=== PATIENT | female | born 1975 | race Caucasian/White ===

== ENCOUNTER 2020-04-15 13:43 | Emergency (ER) | payer BC, SELFPAY ==
[2020-04-15 14:05] VITALS: BP 151/93; PULSE 106; RESP 19; TEMP 37.1; O2SAT 98; BMI 32.1
[2020-04-15 14:15] VITALS: BP 151/93; PULSE 106; RESP 19; TEMP 37.1; O2SAT 98
--- NOTE | 2020-04-15 14:15 | HMH.EDUTC ---
[facility] [place] Disposition Clinical Impression: Viral syndrome, Exposure to COVID-19 virus Disposition: Home, Self-Care Condition on Discharge: Good Instructions: Preventing the Spread of Coronavirus Discharge Instructions Additional Instructions: Drink plenty of fluids. Take tylenol for pain or fever. Return if you begin to have difficulty breathing. Follow up with your regular doctor. GO TO THE ER FOR ANY WORSENING SYMPTOMS Referrals: Hector Castaneda [Primary Care Provider] - Forms: Work/School Release Time of Disposition: 14:17 Medical Decision Making - Medical Records Medical records reviewed: No: I reviewed the patient's medical records. - Darrell Inquiry Pt receiving controlled substance: No Vital Signs: 04/15/20 14:05 04/15/20 14:15 Temperature 98.8 F 98.8 F Temperature Source Oral Pulse Rate 106 H Pulse Rate [Left] 106 H Respiratory Rate 19 19 Blood Pressure 151/93 H Blood Pressure [Right Arm] 151/93 H Blood Pressure Mean [Right Arm] 112 Blood Pressure Source [Right Arm] Automatic Cuff Blood Pressure Position [Right Arm] Sitting 02 Sat by Pulse Oximetry 98 Oxygen Delivery Method Room Air [facility] [place] HPI - General Stated complaint: loss of taste and smell Time Seen by Provider: 04/15/20 14:16 Mode of Arrival: Ambulatory Source of Information: Patient Limitations: No Limitations Description of Symptoms (Recalled from Triage Doc. by RN): Covid testing symptomatic no exposure Loss of smell and taste HEENT Symptoms (Recalled from RN notes): Yes Resp Symptoms (Recalled from RN notes): No Skin Symptoms (Recalled from RN notes): No MS Symptoms (Recalled from RN notes): No Functional Status (Recalled from RN notes): wnl - History of Present Illness Provider Complaint: She states that for the past 2 days she had some sinus congestion. She throught she was getting a sinus infection, but today she has lost her sense of taste and smell. She also states that her sinus congestion has got better. She denies any fever or chillls. - Related Data Home Medications Medication Instructions Recorded Confirmed Cetirizine HCl [Zyrtec 10mg Tab*] 10 mg PO DAILY 04/15/20 04/15/20 Levothyroxine Sodium [Synthroid 125 mcg PO DAILY 04/15/20 04/15/20 125mcg (0.125mg) tablet] Allergies Allergy/AdvReac Type Severity Reaction Status Date / Time No Known Allergies Allergy Verified 04/15/20 14:09 - Worker's Comp Is this a Worker's Comp case?: No Is this an [facility] Worker's Comp?: No Is this a [place] Worker's Comp?: No [facility] History - Hepatitis A Screen Drug use history?: No High risk sexual behaviors?: No History of sexually transmitted infection?: No Currently employed?: No Childcare worker?: No Do you have indoor plumbing?: Yes Do you have electricity?: Yes Attestation statement:: This patient has been screened for Hepatitis A risk factors. I have reviewed the patient's past medical history: Yes - Social History Smoking Status: Never smoker Alcohol Intake: never Occupational Status: other ROS Obtained: Yes All systems reviewed & no additional complaints - Constitutional Constitutional: Reports system reviewed and no additional complaints, except as docu - Eyes Eyes: Reports system reviewed and no additional complaints, except as docu - ENT Ears, Nose, Mouth, and Throat: Reports system reviewed and no additional complaints, except as docu - Cardiovascular Cardiovascular: Reports system reviewed and no additional complaints, except as docu - Respiratory Respiratory: Yes system reviewed and no additional complaints, except as docu - Gastrointestinal Gastrointestingal: Reports: system reviewed and no additional complaints, except as docu Physical Exam - General General appearance: alert, in no apparent distress - Head Head exam: atraumatic, normocephalic, normal inspection - Eye Eye exam: Present: normal appearance, PERRL, EOMI - ENT ENT exam: Present
--- NOTE | 2020-04-15 17:07 | PC.NURSE ---
patient notified of positive covid results
== END 2020-04-15 14:34 | disposition home or self-care (01) ==
PROVIDERS: Emergency Provider Nurse Practitioner Family; PCP Family Medicine
DX: U07.1 COVID-19 (principal)
CPT/HCPCS: 99201; U0003

== ENCOUNTER 2021-01-19 07:22 | Emergency (ER) | payer OTHER, SELFPAY ==
[2021-01-19 07:24] VITALS: BP 156/99; PULSE 77; RESP 16; TEMP 36.5; O2SAT 100; BMI 34.0
--- NOTE | 2021-01-19 07:50 | HMH.EDGENADL ---
ED Disposition Clinical Impression: Kidney stone on right side Disposition: Home, Self-Care Condition on Discharge: Good Additional Instructions: Return to the emergency department with any new, changing, worsening symptoms. Return with worsening pain, pain with urination, burning with urination, fevers, any other concerning symptoms. Please follow-up with urology and your primary doctor in the next 2 to 3 days. Prescriptions: Tamsulosin HCl [Flomax 0.4mg capsule] 0.4 mg PO HS 10 Days #10 cap Transmission Status: Received by [facility] # Ibuprofen [Ibuprofen 600mg Tablet] 600 mg PO Q8H 10 Days #30 tab Transmission Status: Received by [facility] # Oxycodone HCl [Oxycodone 5mg tab (IR)] 5 mg PO Q8 #5 tab Transmission Status: Received by [facility] # Referrals: Hector Castaneda [Primary Care Provider] - Ish Guzman MD [Staff Physician] - Time of Disposition: 10:06 - Critical Care Critical Care Time: No Attestation: On 01/19/21, the high probability of a clinically significant, sudden or life threatening deterioration of the following system(s) required my full and direct attention, intervention and personal management. The time I documented below is in addition to time spent performing reported procedures but includes the following listed in this critical care notation. Medical Decision Making - Medical Records Medical records reviewed: Yes: I reviewed the patient's medical records. - Darrell Inquiry Pt receiving controlled substance: No Vital Signs: 01/19/21 07:24 01/19/21 08:00 01/19/21 08:12 Temperature 97.7 F Temperature Source Oral Pulse Rate 80 79 Pulse Rate [Left Radial] 77 Respiratory Rate 16 19 15 Blood Pressure 159/96 H 141/91 H Blood Pressure [Right Arm] 156/99 H Blood Pressure Mean 114 113 Blood Pressure Mean [Right Arm] 118 Blood Pressure Source [Right Arm] Automatic Cuff Blood Pressure Position [Right Arm] Sitting 02 Sat by Pulse Oximetry 100 97 99 Oxygen Delivery Method Room Air 01/19/21 08:30 Temperature Temperature Source Pulse Rate 80 Pulse Rate [Left Radial] Respiratory Rate 18 Blood Pressure 154/96 H Blood Pressure [Right Arm] Blood Pressure Mean 111 Blood Pressure Mean [Right Arm] Blood Pressure Source [Right Arm] Blood Pressure Position [Right Arm] 02 Sat by Pulse Oximetry 98 Oxygen Delivery Method - Lab Data Lab Results 01/19/21 07:45: WBC 9.7, RBC 4.66, Hgb 14.2, Hct 43.2, MCV 92.7, MCH 30.4, MCHC 32.8, RDW 13.6, Plt Count 349, MPV 8.0, Neut % (Auto) 82.2 H, Lymph % (Auto) 15.2, [place] % (Auto) 2.0, Eos % (Auto) 0.2, Baso % (Auto) 0.4, Neut # (Auto) 8.0 H, Lymph # (Auto) 1.5, [place] # (Auto) 0.2, Eos # (Auto) 0.0, Baso # (Auto) 0.0 01/19/21 07:45: Sodium 141, Potassium 3.9, Chloride 104, Carbon Dioxide 26, Anion Gap 14.9, BUN 14, Creatinine 0.80, Estimated Creat Clear 117, Estimated GFR 78, Est GFR ( Amer) 95, Glucose 194 H, Calcium 9.0, Total Bilirubin 0.3, AST 30, ALT 34, Alkaline Phosphatase 111, Total Protein 7.2, Albumin 4.4, Globulin 2.8, Albumin/Globulin Ratio 1.6 01/19/21 07:45: Urine Color Yellow, Urine Appearance Clear, Urine pH 6.0, Ur Specific [place] 1.025, Urine Protein Negative, Urine Glucose (UA) Trace, Urine Ketones Negative, Urine Blood Trace-i, Urine Nitrate Negative, Urine Bilirubin Negative, Urine Urobilinogen 0.2, Ur Leukocyte Esterase Negative, Urine RBC 3-5, Urine WBC None, Ur Squamous Epith Cells None, Urine Bacteria Trace 01/19/21 07:45: Lipase 195 Result diagrams: 01/19/21 07:45 01/19/21 07:45 Orders (Tests/Meds): ED MEDICATIONS Discontinued Medications Generic Name Dose Route Start Last Admin Trade Name Freq PRN Reason Stop Dose Admin Acetaminophen 1,000 mg 01/19/21 07:56 01/19/21 08:08 Acetaminophen 500mg Tab PO 01/19/21 07:57 1,000 mg ONCE ONE Administration Sodium Chloride 1,000 mls @ 999 mls/hr 01/19/21 07:45 01/19/21 08:0
--- NOTE | 2021-01-19 07:55 | CT_ITS ---
PROCEDURE INFORMATION: Exam: CT Abdomen And Pelvis Without Contrast Exam date and time: 01/19/2021 7:55 AM Age: 45 years old Clinical indication: Patient HX: Possible kidney stone screening// sudden onset of flank pain and back pain at 330 am -- no contrast study TECHNIQUE: Imaging protocol: Computed tomography of the abdomen and pelvis without contrast. Radiation optimization: All CT scans at this facility use at least one of these dose optimization techniques: automated exposure control; mA and/or kV adjustment per patient size (includes targeted exams where dose is matched to clinical indication); or iterative reconstruction. COMPARISON: No relevant prior studies available. FINDINGS: Lungs: Minimal dependent changes are present in the lung bases. Liver: Normal. No mass. Gallbladder and bile ducts: Normal. No calcified stones. No ductal dilation. Pancreas: Normal. No ductal dilation. Spleen: Calcified splenic granulomata. Adrenal glands: Normal. No mass. Kidneys and ureters: [id number] right perinephric stranding and hydronephrosis secondary to a punctate 2 mm calculus located at the right ureterovesical junction. Stomach and bowel: Diverticulosis is present with no CT evidence of diverticulitis. Appendix: The appendix is seen and is normal in appearance. Intraperitoneal space: Unremarkable. No free air. No significant fluid collection. Vasculature: Unremarkable. No abdominal aortic aneurysm. Lymph nodes: Unremarkable. No enlarged lymph nodes. Urinary bladder: Unremarkable as visualized. Reproductive: Unremarkable as visualized. Bones/joints: Unremarkable. No acute fracture. Soft tissues: Unremarkable. IMPRESSION: 1. [id number] right perinephric stranding and hydronephrosis secondary to a punctate 2 mm calculus located at the right ureterovesical junction. 2. Remainder of findings as described above.
[2021-01-19 08:00] VITALS: BP 159/96; PULSE 80; RESP 19; O2SAT 97
[2021-01-19 08:01] LABS: Microscopic, Urine URINE MICROSCOPIC (MICROSCOPIC)
[2021-01-19 08:02] LABS: Appearance,Urine CLEAR (Clear); Basophils % 0.4 % (0.1-2.0); Bilirubin,Urine Negative (Negative); Blood, Urine TRACE-I (Negative); Color,Urine YELLOW (Yellow); Eosinophils % 0.2 % (0.1-12.0); Glucose,Urine (UA) TRACE (Negative); Hematocrit 43.2 % (37.0-47.0); Hemoglobin 14.2 g/dL (12.2-16.2); Ketones,Urine Negative (Negative); Leukocyte Esterase,Urine Negative (Negative); Lymphocytes # 1.5 K/mm3 (0.7-4.5); Lymphocytes % 15.2 % (10-50); Mean Corpuscular HGB Conc 32.8 g/dL (31.8-35.4); Mean Corpuscular Hemoglobin 30.4 pg (27.0-31.2); Mean Corpuscular Volume 92.7 fl (81-99); Monocytes # 0.2 K/mm3 (0.1-1.0); Neutrophils % 82.2 % (37.0-80.0); Nitrate,Urine Negative (Negative); Platelet Count 349 K/mm3 (142-424); Protein,Urine Negative (Negative); Red Blood Count 4.66 M/mm3 (4.20-5.40); Red Cell Distribution Width 13.6 % (11.5-17.5); Specific Gravity, Urine 1.025 (1.005-1.030); Urobilinogen,Urine 0.2 EU/dl (0.2); White Blood Count 9.7 K/mm3 (4.8-10.8)
[2021-01-19 08:09] LABS: Chloride 104 mmol/L (98-107); Sodium 141 mmol/L (136-145)
[2021-01-19 08:10] LABS: Potassium 3.9 mmoL/L (3.5-5.1)
[2021-01-19 08:12] VITALS: BP 141/91; PULSE 79; RESP 15; O2SAT 99
[2021-01-19 08:12] LABS: Alanine Aminotransferase 34 U/L (12-78); Alkaline Phosphatase 111 U/L (38-126); Anion Gap 14.9 mEq/L (5-15); Aspartate Amino Transferase 30 U/L (14-36); Bilirubin,Total 0.3 mg/dl (0.2-1.3); Blood Urea Nitrogen 14 mg/dl (7-17); Carbon Dioxide 26 mmol/L (22.0-30.0); Creatinine Clearance Estimated 117 mL/min (50-200); Estimated Glomerular Filt Rate 78 ml/min (>60); GFR (African American) 95 ML/MIN (>60)
[2021-01-19 08:13] LABS: Albumin Level 4.4 g/dl (3.5-5.0); Albumin/Globulin Ratio 1.6 (1.1-1.8); Globulin 2.8 g/dL (1.3-3.2); Glucose 194 mg/dl (74-100); Lipase 195 U/L (23-300); Total Protein,Serum 7.2 g/dl (6.3-8.2)
[2021-01-19 08:14] LABS: Bacteria,Urine Trace /lpf
[2021-01-19 08:30] VITALS: BP 154/96; PULSE 80; RESP 18; O2SAT 98
--- NOTE | 2021-01-19 09:52 | PC.NURSE ---
pt ambulating up to bathroom
[2021-01-19 10:10] VITALS: BP 140/92; PULSE 79; RESP 16; O2SAT 99
[2021-01-19 10:13] VITALS: BP 140/92; PULSE 70; RESP 16; TEMP 36.5; O2SAT 100
== END 2021-01-19 10:13 | disposition home or self-care (01) ==
PROVIDERS: Emergency Medicine; Emergency Provider Emergency Medicine; PCP Family Medicine
DX: N20.0 Calculus of kidney (principal); E03.9 Hypothyroidism, unspecified
CPT/HCPCS: 74176; 80053; 81001; 83690; 85025; 96365; 96375; 99283; J2405

== ENCOUNTER → 2021-02-26 10:57 | Outpatient (CLI) | payer OTHER, SELFPAY ==
[2021-02-26 11:12] LABS: Coronavirus 19, PCR Not Detected (NotDetected); Influenza A, PCR Not Detected (NotDetected); Influenza B, PCR Not Detected (NotDetected)
== END ==
PROVIDERS: PCP Family Medicine; Visit Provider Nurse Practitioner
DX: Z20.822 Contact with and (suspected) exposure to COVID-19 (principal)
CPT/HCPCS: C9803; U0003; U0005

== ENCOUNTER 2022-09-26 11:20 | Emergency (ER) | payer OTHER, SELFPAY ==
[2022-09-26 11:50] VITALS: BP 150/89; PULSE 77; RESP 20; TEMP 36.8; O2SAT 97; BMI 34.0
--- NOTE | 2022-09-26 12:31 | EXP.UTC ---
Discharge Plan Disposition Patient Disposition: Home, Self-Care Condition: Good Prescriptions Prescriptions: New ofloxacin 0.3 % drops See Rx Instructions .ROUTE .COMPLEX Qty: 5 0RF Rx Instructions: put 1 drop into left eye(s) every 3 h x 2 days, then 1 drp 4 times/day days 3-7 No Action levothyroxine 125 MCG tablet 125 mcg PO DAILY Referrals Follow up/Referrals: Hector Castaneda [Primary Care Provider] - See instructions Clinical Impressions Clinical Impression: [place] eye disease of left eye Instructions Patient Instructions: DI for Conjunctivitis [facility]charge [facility] [place] General Stated complaint: LT eye redness w/drainage Mode of Arrival: Ambulatory Source of Information: Patient Limitations: No Limitations Time Seen by Provider: 09/26/22 12:31 Description of Symptoms (Recalled from Triage Doc. by RN): PATIENT C/O REDNESS AND DRAINAGE TO LEFT EYE SINCE THIS MORNING HEENT Symptoms (Recalled from RN notes): Yes Resp Symptoms (Recalled from RN notes): No Skin Symptoms (Recalled from RN notes): No MS Symptoms (Recalled from RN notes): No Functional Status (Recalled from RN notes): WNL History of Present Illness Provider Complaint: 47 yr old female presents for left eye redness, drainage and matted together this am. Related Data Home Medications Medication Instructions Recorded Confirmed levothyroxine 125 mcg tablet 125 mcg PO DAILY hypothyroidism 04/15/20 09/26/22 Previous Rx's Medication Instructions Recorded ofloxacin 0.3 % eye drops See Rx Instructions ophthalmic 09/26/22 (eye) .COMPLEX #5 mL Allergies Allergy/AdvReac Type Severity Reaction Status Date / Time No Known Allergies Allergy Verified 04/15/20 14:09 Worker's Comp Is this a Worker's Comp case?: No [facility] Disclaimer: The information contained in this section may have been updated after the patient was seen, as this information can be updated by other users. Medical History , THERAPEUTIC STRATEGY LEAD) Cancer Kidney stones Surgical History , THERAPEUTIC STRATEGY LEAD) History of thyroidectomy Social History , THERAPEUTIC STRATEGY LEAD) Smoking Status: Never smoker second hand exposure: No alcohol intake: never current occupational status: other Travel in the last 8 weeks: None ROS Obtained: Yes All systems reviewed & no additional complaints except as documented Constitutional Constitutional: Reports system reviewed and no additional complaints, except as documented and Reports as per HPI Eyes Eyes: Reports system reviewed and no additional complaints, except as documented, Reports as per HPI, Reports eye discharge and Reports irritation ENT Ears, Nose, Mouth, and Throat: Reports system reviewed and no additional complaints, except as documented Cardiovascular Cardiovascular: Reports system reviewed and no additional complaints, except as documented Respiratory Respiratory: Reports system reviewed and no additional complaints, except as documented Gastrointestinal Gastrointestingal: Reports system reviewed and no additional complaints, except as documented Integumentary/Breasts Skin/Breast: Reports system reviewed and no additional complaints, except as documented Neurologic Neurologic: Reports system reviewed and no additional complaints, except as documented Endocrine Endocrine: Reports system reviewed and no additional complaints, except as documented Allergic/Immunologic Allergic/Immunologic: Reports system reviewed and no additional complaints, except as documented Physical Exam General General appearance: alert and in no apparent distress Head Head exam: atraumatic Eye Eye exam: Present PERRL, conjunctival redness and discharge ENT ENT exam: Present normal exam and mucous membranes moist Respiratory Respiratory exam: Present normal lung sounds b
[2022-09-26 12:39] VITALS: BP 150/89; PULSE 77; RESP 20; TEMP 36.8; O2SAT 97
== END 2022-09-26 12:47 | disposition home or self-care (01) ==
PROVIDERS: Emergency Provider Nurse Practitioner Family; PCP Family Medicine
DX: H10.022 Other mucopurulent conjunctivitis, left eye (principal)
CPT/HCPCS: 99212; 99214; G0463